=== PATIENT | male | born 1975 | race Caucasian/White ===

== ENCOUNTER 2016-08-09 23:23 | Emergency (ER) | payer MEDICARE, MEDICAID ==
[~2016-08-09] VITALS: Ht 182.9 cm; Wt 99.5 kg
[2016-08-09 23:50] VITALS: BP 167/97
== END 2016-08-10 01:08 | disposition home or self-care (01) ==
LOC: ED 08-10 00:10
DX: K04.7 Periapical abscess without sinus (principal); K11.5 Sialolithiasis
CPT/HCPCS: 99283

== ENCOUNTER 2018-02-14 00:41 | Emergency (ER) | payer MEDICAID, MEDICARE ==
[~2018-02-14] VITALS: Ht 185.4 cm; Wt 112.2 kg
[2018-02-14 00:42] VITALS: BP 156/100
== END 2018-02-14 01:18 | disposition home or self-care (01) ==
LOC: ED 01:02
DX: K02.9 Dental caries, unspecified (principal)
CPT/HCPCS: 99283

== ENCOUNTER 2018-02-27 16:58 | Emergency (ER) | payer MEDICAID ==
[~2018-02-27] VITALS: Ht 185.4 cm; Wt 110.9 kg
[2018-02-27 17:09] VITALS: BP 141/91
== END 2018-02-27 18:17 ==
LOC: ED 18:11
DX: S39.012A Strain of muscle, fascia and tendon of lower back, initial encounter (principal); Z87.891 Personal history of nicotine dependence; X58.XXXA Exposure to other specified factors, initial encounter; Y93.89 Activity, other specified; Y92.89 Other specified places as the place of occurrence of the external cause; Y99.8 Other external cause status
CPT/HCPCS: 99283